=== PATIENT | male | born 1960 | race Caucasian/White ===

== ENCOUNTER 2020-12-24 18:26 | Emergency (ER) | payer BC, SELFPAY ==
[2020-12-24] VITALS (7 sets, daily range): BP systolic 131–138; BP diastolic 88–103; PULSE 87–117; RESP 12–16; TEMP 36.6; O2SAT 85–99
--- NOTE | 2020-12-24 18:46 | PC.NURSE ---
phone number is [phone]
--- NOTE | 2020-12-24 19:20 | PC.NURSE ---
Assumed care of pt at this time, report taken from Jayson CALDWELL. Pt alert and upright on stretcher on room 15, sitter at bedside. Pt updated on POC.
[2020-12-24 19:33] LABS: Basophils Absolute Auto 0.1 K/mm3 (0.0-0.1); Basophils Percent Auto 0.7 % (0.2-1.2); Eosinophils Absolute Auto 0.1 K/mm3 (0-0.3); Eosinophils Percent Auto 1.2 % (0-4.4); Hematocrit 45.5 % (42.0-52.0); Hemoglobin 15.4 g/dL (14.0-18.0); Immature Granulocyte Absolute 0.01 K/mm3 (0.00-0.031); Immature Granulocyte Percent A 0.1 % (0-0.5); Lymphocytes Absolute Auto 3.35 K/mm3 (0.9-3.2); Lymphocytes Percent Auto 38.9 % (18.3-44.2); Mean Corpuscular HGB Conc 33.8 g/dl (32-36); Mean Corpuscular Hemoglobin 30.1 pg (26-34); Mean Platelet Volume 10.6 fl (7.4-10.4); Monocytes Absolute Auto 0.5 K/mm3 (0.1-0.6); Monocytes Percent Auto 5.9 % (2.6-8.5); Neutrophils Absolute Auto 4.6 K/mm3 (1.3-6.7); Neutrophils Percent Auto 53.2 % (45.5-73.1); Platelet Count Result 154 k/mm3 (150-375); Red Blood Count 5.11 M/mm3 (4.6-6.20); Red Cell Distribution Width 12.3 % (11.5-14.5); White Blood Count 8.6 K/mm3 (4.5-10.0)
[2020-12-24 19:51] LABS: Ethanol 257 mg/dL (<10)
[2020-12-24 19:54] LABS: Alanine Aminotransferase 20 U/L (4-50); Albumin Level 4.5 g/dL (3.5-5.1); Alkaline Phosphatase 59 U/L (38-126); Anion Gap 17 mmol/L (8-16); Aspartate Amino Transferase 28 U/L (17-59); Bilirubin,Total 0.6 mg/dL (0.2-1.3); Blood Urea Nitrogen 13 mg/dL (9-20); Calcium 9.1 mg/dL (8.4-10.2); Carbon Dioxide 20 mmol/L (22-30); Chloride 106 mmol/L (98-107); Estimated CRCL calculation 98 ml/min; Estimated Glomerular Filt Rate > 60; Glucose 95 mg/dL (65-110); Potassium 3.8 mmol/L (3.4-5.0); Sodium 143 mmol/L (137-145)
--- NOTE | 2020-12-24 20:02 | PC.NURSE ---
Pt requesting medication for anxiety. Pt states Either detox me, or send me home. If you're not going to do anything for me, Im leaving . Pt re-educated on process for pts coming to ED for SI and psychiatric issues. Educated on why he is not able to go home. EDP notified.
--- NOTE | 2020-12-24 20:15 | PC.NURSE ---
Pt exited room 15 and walked with steady gait towards ambulance bay doors. Pt stated he was going home. This RN was able to redirect pt and was taken back to room 15.
--- NOTE | 2020-12-24 20:20 | PC.NURSE ---
Pt moved to room 13 for administration on IV fluids. Sitter at bedside. Room set up for SI precautions.
[2020-12-24] MEDS: LORazepam INJ (*CRX) 2 MG/ML VIAL 1 MG IV PUSH ×2 (20:29→21:52)
[2020-12-24 20:32] LABS: Add Urine Microscopic? YES; Appearance Urine Clear (Clear); Bilirubin Urine Negative (Negative); Blood Urine 2+ (Negative); Color Urine Yellow (Yellow); Glucose Urine UA Negative (Negative); Ketones Urine Trace mg/dL (Negative); Leukocyte Esterase Ur Negative LEU/UL (Negative); Mucus Urine Rare /lpf; Nitrate Urine Negative (Negative); Protein Urine 1+ mg/dL (Negative); Urobilinogen Urine Negative mg/dL (<2.0)
[2020-12-24] MEDS: SODIUM CHLORIDE 0.9% IV 1,000 ML 999 ML IV CONT (20:34)
--- NOTE | 2020-12-24 20:44 | ED.PSYCH ---
HPI - Psych General Chief Complaint: Psychiatric Symptoms <Jemal Nichole MD - Last Filed: 12/24/20 20:48> Stated Complaint: si <Jemal Nichole MD - Last Filed: 12/24/20 20:48> Time Seen by Provider: 12/24/20 19:58 <Jemal Nichole MD - Last Filed: 12/24/20 20:48> Source: patient <Jemal Nichole MD - Last Filed: 12/24/20 20:48> Mode of arrival: EMS <Jemal Nichole MD - Last Filed: 12/24/20 20:48> Limitations: no limitations <Jemal Nichole MD - Last Filed: 12/24/20 20:48> History of Present Illness HPI Narrative: 60-year-old with a history of alcohol abuse was brought in by PD with complaints patient was found to have gun in his hand against his head at home was witnessed by his who later called PD and he was brought here to the ER. Patient states that he has multiple guns at home and is a chronic alcoholic and is unable to get into rehab. Patient presently denies being suicidal or homicidal. He states that she is not able to get any help for his alcoholism. Denies being depressed <Jemal Nichole MD - Last Filed: 12/24/20 20:48> Onset (ago): hour(s) (1) <Jemal Nichole MD - Last Filed: 12/24/20 20:48> Context: recent alcohol abuse <Jemal Nichole MD - Last Filed: 12/24/20 20:48> Associated psychiatric symptoms: none <Jemal Nichole MD - Last Filed: 12/24/20 20:48> Associated symptoms: denies other symptoms <Jemal Nichole MD - Last Filed: 12/24/20 20:48> Treatments prior to arrival: none <Jemal Nichole MD - Last Filed: 12/24/20 20:48> Related Data Allergies/Adverse Reactions: Allergies Allergy/AdvReac Type Severity Reaction Status Date / Time Contrast Media Allergy Intermediate HIVES Uncoded 07/03/14 15:28 <Jemal Nichole MD - Last Filed: 12/24/20 20:48> Review of Systems Review of Systems: All systems reviewed & are unremarkable except as noted in HPI and below <Jemal Nichole MD - Last Filed: 12/24/20 20:48> Constitutional: Constitutional: Reports no additional constitutional complaints <Jemal Nichole MD - Last Filed: 12/24/20 20:48> Eyes: Eyes: Reports no additional eye complaints <Jemal Nichole MD - Last Filed: 12/24/20 20:48> ENT: Reports system reviewed and no additional complaints, except as documented <Jemal Nichole MD - Last Filed: 12/24/20 20:48> Cardiovascular: Cardiovascular: Reports no additional cardiovascular complaints <Jemal Nichole MD - Last Filed: 12/24/20 20:48> Respiratory: Respiratory: Reports no additional respiratory complaints <Jemal Nichole MD - Last Filed: 12/24/20 20:48> Gastrointestinal: Gastrointestinal: Reports no additional gastrointestinal complaints <Jemal Nichole MD - Last Filed: 12/24/20 20:48> Musculoskeletal: Musculoskeletal: Reports no additional musculoskeletal complaints <Jemal Nichole MD - Last Filed: 12/24/20 20:48> Integumentary/Breasts: Skin/Breast: Reports system reviewed and no additional complaints, except as docu <Jemal Nichole MD - Last Filed: 12/24/20 20:48> Neurologic: Reports system reviewed and no additional complaints, except as documented <Jemal Nichole MD - Last Filed: 12/24/20 20:48> PMFSH Social History Social History: Social History Substance use type: does not use <Jemal Nichole MD - Last Filed: 12/24/20 20:48> Exam Narrative: GENERAL: Well-appearing, well-nourished, verbally abusive and hostile HEAD: Normocephalic, atraumatic. EYES: PERRLA and EOMI. NECK: Supple. CHEST: Clear to auscultation. No respiratory distress. HEART: Regular rate and rhythm. No murmur heard. Normal peripheral pulses. ABDOMEN: Soft, nontender, nondistended, normal active bowel sounds. EXTREMITIES: Normal range of motion. No edema. SKIN: Warm, dry, no rash. NEURO: No focal deficits. Alert and oriented x3. PSYCH: Agitated and hostile <Jemal Nichole MD - Last Filed: 12/24/20 20
[2020-12-24 20:46] LABS: Amphetamine Screen Urine Negative (Negative); Barbiturate Screen Urine Negative (Negative); Benzodiazepines Screen Urine Negative (Negative); Cannabinoid Screen Urine Negative (Negative); Cocaine Screen Urine Negative (Negative); Methadone Screen Urine Negative (Negative); Opiate Screen Urine Negative (Negative); Phencyclidine Screen Urine Negative (Negative)
--- NOTE | 2020-12-24 21:11 | ECG_ITS ---
Measurements Intervals [place] Rate: 104 P: 30 WA: 202 QRS: -53 QRSD: 114 T: 28 QT: 349 QTc: 461 Interpretive Statements SINUS TACHYCARDIA LEFT ANTERIOR FASCICULAR BLOCK CANNOT RULE OUT SEPTAL INFARCT, AGE INDETERMINATE BORDERLINE T WAVE ABNORMALITY- INFERIOR LEADS ABNORMAL ECG Electronically Signed On 12-25-2020 6:08:03 CDT by Gato Sanches D.O.
--- NOTE | 2020-12-24 22:26 | PC.NURSE ---
Pt sleeping on stretcher, lights dimmed. Sitter at bedside.
[2020-12-24 23:07] LABS: Troponin I < 0.012 ng/mL (0.000-0.034)
[2020-12-24 23:35] LABS: Troponin I < 0.012 ng/mL (0.000-0.034)
--- NOTE | 2020-12-25 00:17 | PC.NURSE ---
Called and spoke to Ethel to add on Ethanol
[2020-12-25 00:33] LABS: Ethanol 164 mg/dL (<10)
[2020-12-25 02:00] VITALS: O2SAT 96
[2020-12-25 03:15] VITALS: BP 123/90; PULSE 80; RESP 13; O2SAT 93
[2020-12-25 04:42] LABS: Ethanol 75 mg/dL (<10)
--- NOTE | 2020-12-25 04:45 | PC.NURSE ---
Per utility bag assembler, no sitter needed after [place] Reassessment scale.
[2020-12-25 04:52] LABS: Troponin I < 0.012 ng/mL (0.000-0.034)
--- NOTE | 2020-12-25 05:21 | PC.NURSE ---
Per Crisis, pt to be discharged with safety contact.
[2020-12-25 05:24] VITALS: BP 117/92; PULSE 98; RESP 12; O2SAT 94
[2020-12-25] MEDS: LORazepam INJ (*CRX) 2 MG/ML VIAL 1 MG IV PUSH (05:49)
--- NOTE | 2020-12-25 06:25 | PC.NURSE ---
Pts arrived to transport pt home. Pt ambulated to waiting room with steady gait, in no obvious distress.
== END 2020-12-25 06:25 | disposition home or self-care (01) ==
PROVIDERS: Emergency Medicine; Family Medicine; Emergency Provider Emergency Medicine; PCP Nurse Practitioner Family
DX: F10.10 Alcohol abuse, uncomplicated (principal); F32.9 Major depressive disorder, single episode, unspecified; Y90.8 Blood alcohol level of 240 mg/100 ml or more; R00.0 Tachycardia, unspecified; I44.4 Left anterior fascicular block; R94.31 Abnormal electrocardiogram [ECG] [EKG]
CPT/HCPCS: 36415; 80053; 80307; 81001; 84443; 84484; 85025; 93005; 96361; 96374; 96376; 99284; J2060; J7030